=== PATIENT | male | born 1995 | race Caucasian/White ===

== ENCOUNTER 2019-08-15 00:24 | Observation (INO) | payer OTHER ==
[~2019-08-15] VITALS: Ht 177.8 cm; Wt 95.2 kg
[2019-08-15 01:25] LABS: BASOPHILS ABSOLUTE AUTO 0.02 K/mm3 (0.00-0.23); BASOPHILS PERCENT AUTO 0 % (0-2); EOSINOPHILS ABSOLUTE AUTO 0.06 K/mm3 (0.00-0.68); EOSINOPHILS PERCENT AUTO 1 % (0-6); Hematocrit 39.1 % (37.0-53.0); Hemoglobin 12.8 g/dL (13.5-17.5); IMMATURE GRAN ABSOLUTE AUTO 0.05 K/mm3 (0.00-0.10); IMMATURE GRAN PERCENT AUTO 1 % (0-1); LYMPHOCYTES ABSOLUTE AUTO 2.65 K/mm3 (0.84-5.20); LYMPHOCYTES PERCENT AUTO 27 % (21-46); MONOCYTES ABSOLUTE AUTO 0.77 K/mm3 (0.16-1.47); MONOCYTES PERCENT AUTO 8 % (4-13); Mean Corpuscular HGB 30.5 pg (26.0-34.0); Mean Corpuscular HGB Conc 32.7 g/dL (31.5-36.5); Mean Corpuscular Volume 93 fL (80-100); Mean Platelet Volume 8.8 fL (9.1-12.4); NEUTROPHILS ABSOLUTE AUTO 6.18 K/mm3 (1.96-9.15); NEUTROPHILS PERCENT AUTO 64 % (41-73); Platelet Count 341 K/mm3 (150-400); RDW Standard Deviation 41.3 fL (35.1-46.3); Red Blood Cell Count 4.19 M/mm3 (4.30-5.90); White Blood Cell Count 9.73 K/mm3 (4.00-11.30)
[2019-08-15 01:36] LABS: Source, Urine Clean Catch
[2019-08-15 01:39] LABS: Bilirubin, Urine Neg (Neg); Blood, Urine 1+ (Neg); Glucose Qualitative, Urine Neg (Neg); Ketones, Urine Neg (Neg); Leukocyte Esterase, Urine 1+ (Neg); Nitrite, Urine Neg (Neg); Protein, Urine Neg (Neg); Specific Gravity, Urine 1.015 (1.003-1.022); Urobilinogen, Urine NORM (Normal)
[2019-08-15 01:44] LABS: Appearance, Urine Clear (Clear); Color, Urine Yellow (P-Yellow)
[2019-08-15 01:48] LABS: Alanine Aminotransfer (ALT/SGP 20 U/L (12-78); Albumin, Blood 3.8 g/dL (3.4-5.0); Alk Phos 65 U/L (50-136); Anion Gap 6 mmol/L (6-16); Aspartate Aminotrans (AST/SGOT 17 U/L (12-37); Bilirubin, Total 0.2 mg/dL (0.1-1.0); Blood Urea Nitrogen 12 mg/dL (8-24); Bun/Creatinine Ratio 13.5 (12.0-20.0); CO2, Blood 26 mmol/L (21-32); Calcium, Blood 8.5 mg/dL (8.5-10.1); Chloride, Blood 107 mmol/L (98-108); Creatinine, Blood 0.89 mg/dL (0.60-1.20); Globulin, Blood 3.8 g/dL (2.2-4.0); Glomerular Filtration Rate >60 (60-); Glucose, Blood 103 mg/dL (70-99); Potassium, Blood 3.6 mmol/L (3.5-5.5); Sodium, Blood 139 mmol/L (136-145); Total Protein, Blood 7.6 g/dL (6.4-8.2)
[2019-08-15 01:49] LABS: Red Blood Cells, Urine 0-2 /hpf (0-2); Squamous Epithelial Cells Few /hpf (Few)
[2019-08-15 01:50] LABS: Bacteria Few /hpf
[2019-08-15 02:02] LABS: U Amphetamine Screen Not Detected; U Barbituate Screen Not Detected; U Benzodiazapine Screen Not Detected; U Buprenorphine Screen Not Detected; U Cannabinoids Screen Not Detected; U Cocaine Screen Not Detected; U Methadone Screen Not Detected; U Methamphetamine Screen Not Detected; U Opiates Screen Not Detected; U Oxycodone Screen Not Detected; U Phencyclidine Screen Not Detected; U Propoxyphene Screen Not Detected
[2019-08-15] MEDS ORDERED: ALBU90OI INH (02:20)
[2019-08-15] MEDS ORDERED: CLIMARA1 EACH PO (02:21)
[2019-08-15] MEDS ORDERED: SPIR50 PO (02:22)
[2019-08-15] MEDS ORDERED: VENL150ER PO (02:22)
[2019-08-15] MEDS ORDERED: LAMO25 PO (02:23)
[2019-08-15] MEDS ORDERED: ESTR2 PO (03:17)
== END 2019-08-15 07:59 | disposition home or self-care (01) ==
LOC: ER 00:24 → EOR 00:25
PROVIDERS: ADMIT Emergency Medicine
DX: F33.1 Major depressive disorder, recurrent, moderate (principal); Z79.899 Other long term (current) drug therapy; Z79.51 Long term (current) use of inhaled steroids
CPT/HCPCS: 36415; 80053; 81001; 84443; 85025; 87086; 99285; G0378; Q3014

== ENCOUNTER 2020-03-14 05:17 | Emergency (ER) | payer OTHER ==
[~2020-03-14] VITALS: Ht 177.8 cm; Wt 104.3 kg
[~2020-03-14 05:17] MED LIST: ALBU90OI INH; CLIMARA1 EACH PO; ESTR2 PO; LAMO25 PO; SPIR50 PO; VENL150ER PO
[2020-03-14] MEDS ORDERED: SERT50 PO (05:41)
== END 2020-03-14 14:13 | disposition home or self-care (01) ==
LOC: ER 05:17 → EDSEX 05:17 → ER 14:13
DX: R45.851 Suicidal ideations (principal); F60.9 Personality disorder, unspecified
CPT/HCPCS: 99285; Q3014

== ENCOUNTER 2020-11-04 23:35 | Observation (INO) | payer OTHER ==
[~2020-11-04] VITALS: Ht 177.8 cm; Wt 115.2 kg
[~2020-11-04 23:35] MED LIST changes: +ALDACTONE100 MG PO; +EFFEXOR XR150 MG PO; +SERT50 PO; -SPIR50 PO; -VENL150ER PO
[2020-11-05 00:07] LABS: BASOPHILS ABSOLUTE AUTO 0.04 K/mm3 (0.00-0.23); BASOPHILS PERCENT AUTO 0 % (0-2); EOSINOPHILS ABSOLUTE AUTO 0.12 K/mm3 (0.00-0.68); EOSINOPHILS PERCENT AUTO 1 % (0-6); Hematocrit 41.3 % (37.0-53.0); Hemoglobin 13.2 g/dL (13.5-17.5); IMMATURE GRAN ABSOLUTE AUTO 0.06 K/mm3 (0.00-0.10); IMMATURE GRAN PERCENT AUTO 1 % (0-1); LYMPHOCYTES ABSOLUTE AUTO 3.06 K/mm3 (0.84-5.20); LYMPHOCYTES PERCENT AUTO 28 % (21-46); MONOCYTES ABSOLUTE AUTO 0.99 K/mm3 (0.16-1.47); MONOCYTES PERCENT AUTO 9 % (4-13); Mean Corpuscular HGB 29.1 pg (26.0-34.0); Mean Corpuscular Volume 91 fL (80-100); Mean Platelet Volume 8.8 fL (9.1-12.4); NEUTROPHILS ABSOLUTE AUTO 6.62 K/mm3 (1.96-9.15); NEUTROPHILS PERCENT AUTO 61 % (41-73); Platelet Count 366 K/mm3 (150-400); RDW Coefficient Variation 12.5 % (11.7-14.2); Red Blood Cell Count 4.53 M/mm3 (4.30-5.90); White Blood Cell Count 10.89 K/mm3 (4.00-11.30)
[2020-11-05 00:16] LABS: Source, Urine Clean Catch
[2020-11-05 00:21] LABS: Bilirubin, Urine Neg (Neg); Blood, Urine 1+ (Neg); Glucose Qualitative, Urine Neg (Neg); Ketones, Urine Neg (Neg); Leukocyte Esterase, Urine 1+ (Neg); Nitrite, Urine Neg (Neg); Protein, Urine 1+ (Neg); Specific Gravity, Urine 1.025 (1.003-1.022); Urobilinogen, Urine NORM (Normal)
[2020-11-05 00:26] LABS: Alanine Aminotransfer (ALT/SGP 28 U/L (12-78); Albumin, Blood 3.5 g/dL (3.4-5.0); Albumin/Globulin Ratio 0.9 (0.8-1.8); Alk Phos 79 U/L (50-136); Anion Gap 7 mmol/L (6-16); Aspartate Aminotrans (AST/SGOT 15 U/L (12-37); Bilirubin, Total 0.1 mg/dL (0.1-1.0); Blood Urea Nitrogen 14 mg/dL (8-24); Bun/Creatinine Ratio 18.2 (12.0-20.0); CO2, Blood 23 mmol/L (21-32); Calcium, Blood 8.9 mg/dL (8.5-10.1); Chloride, Blood 109 mmol/L (98-108); Creatinine, Blood 0.77 mg/dL (0.60-1.20); Ethanol (Alcohol), Blood, Med <3 mg/dL; Globulin, Blood 4.1 g/dL (2.2-4.0); Glomerular Filtration Rate >60 (60-); Glucose, Blood 98 mg/dL (70-99); Potassium, Blood 3.9 mmol/L (3.5-5.5); Salicylate <1.7 mg/dL (2.8-20.0); Sodium, Blood 139 mmol/L (136-145); Total Protein, Blood 7.6 g/dL (6.4-8.2)
[2020-11-05 00:28] LABS: Appearance, Urine Clear (Clear); Color, Urine Yellow (P-Yellow)
[2020-11-05 00:29] LABS: Acetaminophen, Random <2.0 ug/mL (10.0-30.0)
[2020-11-05 00:29] LABS: Bacteria Few /hpf; Squamous Epithelial Cells Mod /hpf (Few)
[2020-11-05 00:34] LABS: U Amphetamine Screen Not Detected; U Barbituate Screen Not Detected; U Benzodiazapine Screen Not Detected; U Buprenorphine Screen Not Detected; U Cannabinoids Screen DETECTED; U Cocaine Screen Not Detected; U Methadone Screen Not Detected; U Methamphetamine Screen Not Detected; U Opiates Screen Not Detected; U Oxycodone Screen Not Detected; U Phencyclidine Screen Not Detected; U Propoxyphene Screen Not Detected
[2020-11-05] MEDS ORDERED: Alprazolam ER0.5 MG PO (04:41)
--- NOTE | 2020-11-05 06:29 | NUR ---
SHIFT SUMMARY PT WAS A NEW ADMIT DURING THE NIGHT, ARRIVING ON THE FLOOR AT 0408. PT IS A 25 Y/O TRANSGENDER MALE TO FEMALE, ADMITTED FOR A VENLAFAXINE OD. POISON CONTROL UPDATED ON PT CONDITION BY THIS RN APPROXIMITELY 0430. A&O X 4, INDEPENDENT IN THE ROOM. SI, 2 MD HOLD. SITTER IN THE ROOM. VITAL SIGNS STABLE. PT DENIES PAIN, NAUSEA OR SOB. PT RECEIVING NS @ 100 ML/HR. NO ACUTE CHANGES IN PT CONDITION NOTED SINCE ADMISSION. WILL CONTINUE TO MONITOR AND TREAT PER EMAR UNTIL HAND OFF TO DAY SHIFT RN.
--- NOTE | 2020-11-05 12:40 | NUR ---
Suicide Safety Plan interview completed 1130am today. Patient laid flat in bed the entire interview. Dark hair with blue tips and shaved on one side of head. Patient had mustache and ray. Charge Nurse relayed the patient wished to be called Nikki rather than Sukumar as registerd. Patient made no eye contact during interview. Patient reported he was having a "mental breakdown" and a panic attack prior to taking pills. He reports he held the bottle up and took "about 5" pills, "but they got stuck". He called the police himself to report taking pills. Patient was very articulate, well spoken, but would relay inconsistent details with previous statements, and was evasive at times. He reports he has "alprazolam for panic attackes", but did not take it to decrease his panic as he was "concerned of a Seratonin surge would affect his health". He did not seem to be aware that he contradicted himself when he previously had state he was trying to kill himself by OD. He reports he "probably wont harm himself in the hospital", but " I can't 100% say, as things just happen sometime". Patient has bed side sitter and is an a Hold. Patient is with a 2!/2 year old daughter, and is "polyamorous" with his "love interest" that lives with he and his . Patient sees many 1x per week for therapys at [facility]. He was informed of crisis phone numbers and egaged minimally in developiing the safety plan. He was educated on relocating his meds so not accessible, as a means to delay any impulsive behaviors. He reports he has atte,mpted suicide 4x in past year. Emilee Vaca M.Ed., [facility]
--- NOTE | 2020-11-05 13:03 | NUR ---
Sally is therapist at [facility] that patient sees 1x per week.
--- NOTE | 2020-11-05 16:04 | NUR ---
PHSYICIAN NOTIFIED OF ELEVATED BLOOD PRESSURE AND PULSE. PHYSICIAN VERBALIZED THAT THEY WOULD PUT IN ORDERS.
--- NOTE | 2020-11-05 18:31 | NUR ---
SHIFT SUMMARY PT A/O X4; PLEASANT AND COOPERATIVE WITH CARE. IND IN THE ROOM AND ON SI PRECAUTIONS FOR THE MAJORITY OF THE SHIFT. PT WAS SEEN BY PHYSICIAN AND IS NO LONGER REQUIRING A 1:1 SITTER BUT STILL ON CAMERA. PT HAS DENIED SI THIS SHIFT. BP ELEVATED THIS SHIFT SO THE PHYSICIAN WAS NOTIFIED AND MEDICATIONS ADJUSTED. WILL REPORT TO CHERRY CUTTER RN.
--- NOTE | 2020-11-05 19:39 | NUR ---
VERIFIED VIDEO MONITORING CALLED AND VERIFIED VIDEO MONITORING IS IN PLACE
--- NOTE | 2020-11-06 04:16 | NUR ---
SHIFT SUMMARY ADMITTED FOR OD/SI. FULL CODE. PT IS HOPEFUL FOR DC TODAY. PT IS IN TRANSITION FROM MALE TO FEMALE AND PREFERS THE NAME, [id number]. POISON CONTROL IS INVOLVED WITH THIS CASE AND WILL LIKELY SIGN OFF W/IN 24 HRS. NO IRREGULAR VITALS NOTED. DR GONZALEZ IS PSYCHIATRIC CONSULT. CAMERAS ARE MONITORING. PT STATES SHE IS IN CONTACT WITH FAMILY AT HOME AND LOOKING FORWARD TO SEEING THEM. NO NEW CONCERNS THIS SHIFT
[2020-11-06] MEDS ORDERED: METO25ER PO (12:21)
--- NOTE | 2020-11-06 12:46 | NUR ---
PT SLEEPING DURING SHIFT REPORT. WOKE PT BREIFLY, BUT WENT RIGHT BACK TO SLEEP. PER NOC SHIFT RN, PT WAS AWAKE MOST OF THE NIGHT. PT LATER WOKE FOR CARE AND DID EAT BREAKFAST. AM MEDS TAKEN W/O DIFFICULTY. DR ANTHONY IN EARLY THIS AM. DISCUSSED PLAN OF CARE AND DISCHARGE INSTRUCTIONS. PT TO D/C TO HOME. INSTRUCTIONS AND F/U APPOINTMENTS DISCUSSED WITH PT; VERBALIZED UNDERSTANDING. PT PRESENTLY WAITING FOR RIDE TO TAKE HIM HOME.
== END 2020-11-06 13:19 | disposition home or self-care (01) ==
LOC: ER 23:35 → MEDS 23:36 → EOR 11-05 00:32 → ER 11-05 00:32 → MEDS 11-05 00:32 → EDSEX 11-06 13:19 → MEDS 11-06 13:19
PROVIDERS: Emergency Medicine; ADMIT Family Medicine
DX: T14.91XA Suicide attempt, initial encounter (principal); T43.212A Poisoning by selective serotonin and norepinephrine reuptake inhibitors, intentional self-harm, initial encounter; F33.3 Major depressive disorder, recurrent, severe with psychotic symptoms; I10 Essential (primary) hypertension; F64.0 Transsexualism; F60.3 Borderline personality disorder; F12.90 Cannabis use, unspecified, uncomplicated; J45.909 Unspecified asthma, uncomplicated
CPT/HCPCS: 80053; 81001; 85025; 99285-25; A9270; G0008; G0378; G0480; J7030; Q2038

== ENCOUNTER 2023-05-18 22:24 | Emergency (ER) | payer OTHER ==
[~2023-05-18] VITALS: Ht 177.8 cm; Wt 99.8 kg
[~2023-05-18 22:24] MED LIST changes: +Alprazolam ER0.5 MG PO; +METO25ER PO
[2023-05-18 22:33] VITALS: BP 145/106
[2023-05-18] MEDS ORDERED: LITH300C PO (22:37)
[2023-05-18] MEDS ORDERED: VENL150ER PO (22:38)
== END 2023-05-18 23:00 | disposition home or self-care (01) ==
LOC: ER 22:24
DX: Z76.0 Encounter for issue of repeat prescription (principal); Z91.018 Allergy to other foods; Z88.8 Allergy status to other drugs, medicaments and biological substances; Z79.899 Other long term (current) drug therapy
CPT/HCPCS: 99281; A9270

== ENCOUNTER 2025-06-24 03:35 | Emergency (ER) | payer OTHER ==
[~2025-06-24] VITALS: Ht 188 cm; Wt 93.0 kg
[~2025-06-24 03:35] MED LIST changes: +LITH300C PO; +VENL150ER PO
[2025-06-24 03:45] VITALS: BP 152/100
[2025-06-24] MEDS ORDERED: RX Prepack 2 Tabs Ondansetron ODT 4MG UD ONE (04:15)
== END 2025-06-24 04:25 | disposition home or self-care (01) ==
LOC: ER 03:35
DX: J06.9 Acute upper respiratory infection, unspecified (principal); F43.10 Post-traumatic stress disorder, unspecified; Z88.8 Allergy status to other drugs, medicaments and biological substances; Z91.018 Allergy to other foods; Z79.899 Other long term (current) drug therapy
CPT/HCPCS: 99282; A9270